=== PATIENT | female | born 1970 | race Caucasian/White ===

== ENCOUNTER 2017-04-07 20:55 | Emergency (ER) | payer OTHER, MEDICAID ==
[~2017-04-07] VITALS: Ht 160 cm; Wt 110.7 kg
[~2017-04-07 20:55] MED LIST: IBUP-974 PO; PREN1SGL44 PO
[2017-04-07 21:11] VITALS: BP 159/93
--- NOTE | 2017-04-07 22:57 | NUR ---
PT TAKEN TO BED 3
--- NOTE | 2017-04-07 23:04 | NUR ---
46 Y/O F W/C/O LUMP/AND PAIN TO L SIDE OF VAGINA X YESTERDAY. DENIES ANY DISCHARGE OR BLEEDING. ER MD MADE AWARE.
[2017-04-07 23:52] VITALS: BP 137/68
--- NOTE | 2017-04-07 23:53 | NUR ---
Patient discharged with v/s stable. Written and verbal after care instructions given and explained. Patient alert, oriented and verbalized understanding of instructions. Ambulatory with steady gait. All questions addressed prior to discharge. ID band removed. Patient advised to follow up with PMD. Rx of CLINDAMYCIN, MOTRIN, given. Patient educated on indication of medication including possible reaction and side effects. Opportunity to ask questions provided and answered.
== END 2017-04-07 23:53 | disposition home or self-care (01) ==
LOC: MED 20:55
DX: N76.4 Abscess of vulva (principal)
CPT/HCPCS: 81025; 99283